=== PATIENT | female | born 1955 | race Two or more races ===

== ENCOUNTER 2021-11-17 19:26 | Inpatient (IN) | payer OTHER ==
[~2021-11-17] VITALS: Ht 149.9 cm; Wt 68.0 kg
[2021-11-17] MEDS ORDERED: BENZONATATE200 M1 (20:37)
[2021-11-17] MEDS ORDERED: LASIX20 MG (20:37)
[2021-11-17] MEDS ORDERED: TOPROL XL100 M1 PO (20:37)
[2021-11-17] MEDS ORDERED: PLAVIX75 MG (20:38)
[2021-11-17] MEDS ORDERED: GLIPIZIDE XL10 MG (20:38)
[2021-11-17] MEDS ORDERED: DALIRESP500 MCG PO (20:38)
[2021-11-17] MEDS ORDERED: CARDURA XL4 MG PO (20:38)
[2021-11-17] MEDS ORDERED: EZALLOR SPRINKL40 MG PO (20:39)
[2021-11-17] MEDS ORDERED: SYNTHROID100 MCG PO (20:39)
[2021-11-17] MEDS ORDERED: INVOKANA300 MG (20:39)
[2021-11-17] MEDS ORDERED: TRELEGY ELLIPT1 EACH IH (20:40)
== END 2022-01-29 10:01 | disposition designated cancer center or children's hospital (05) | DRG 180 ==
LOC: ER 19:26 → MEDJ 11-18 01:07
PROVIDERS: ADMIT Internal Medicine; ATTEND Internal Medicine
PROC: 4A12X4Z Monitoring of Cardiac Electrical Activity, External Approach (ICD-10-PCS; 2021-11-18)
PROC: 3E0F7GC Introduction of Other Therapeutic Substance into Respiratory Tract, Via Natural or Artificial Opening (ICD-10-PCS; 2021-11-18)
PROC: B24BYZZ Ultrasonography of Heart with Aorta using Other Contrast (ICD-10-PCS; 2021-11-18)
PROC: 0W9930Z Drainage of Right Pleural Cavity with Drainage Device, Percutaneous Approach (ICD-10-PCS; principal; 2021-11-26)
PROC: BW24ZZZ Computerized Tomography (CT Scan) of Chest and Abdomen (ICD-10-PCS; 2021-12-03)
PROC: 0W9930Z Drainage of Right Pleural Cavity with Drainage Device, Percutaneous Approach (ICD-10-PCS; 2021-12-11)
PROC: BW2410Z Computerized Tomography (CT Scan) of Chest and Abdomen using Low Osmolar Contrast, Unenhanced and Enhanced (ICD-10-PCS; 2021-12-17)
PROC: BW2110Z Computerized Tomography (CT Scan) of Abdomen and Pelvis using Low Osmolar Contrast, Unenhanced and Enhanced (ICD-10-PCS; 2021-12-20)
PROC: BG44ZZZ Ultrasonography of Thyroid Gland (ICD-10-PCS; 2021-12-20)
PROC: 0BBG3ZX Excision of Left Upper Lung Lobe, Percutaneous Approach, Diagnostic (ICD-10-PCS; 2021-12-24)
PROC: 0GBG3ZX Excision of Left Thyroid Gland Lobe, Percutaneous Approach, Diagnostic (ICD-10-PCS; 2021-12-24)
PROC: 0GBH3ZX Excision of Right Thyroid Gland Lobe, Percutaneous Approach, Diagnostic (ICD-10-PCS; 2021-12-24)
PROC: 0BBG3ZX Excision of Left Upper Lung Lobe, Percutaneous Approach, Diagnostic (ICD-10-PCS; 2021-12-24)
PROC: BW2410Z Computerized Tomography (CT Scan) of Chest and Abdomen using Low Osmolar Contrast, Unenhanced and Enhanced (ICD-10-PCS; 2022-01-01)
PROC: BW2F10Z Computerized Tomography (CT Scan) of Neck using Low Osmolar Contrast, Unenhanced and Enhanced (ICD-10-PCS; 2022-01-01)
PROC: B24BYZZ Ultrasonography of Heart with Aorta using Other Contrast (ICD-10-PCS; 2022-01-16)
PROC: BW2410Z Computerized Tomography (CT Scan) of Chest and Abdomen using Low Osmolar Contrast, Unenhanced and Enhanced (ICD-10-PCS; 2022-01-16)
DX: C78.01 Secondary malignant neoplasm of right lung (principal); J91.0 Malignant pleural effusion; J18.1 Lobar pneumonia, unspecified organism; J86.9 Pyothorax without fistula; I50.30 Unspecified diastolic (congestive) heart failure; N17.9 Acute kidney failure, unspecified; C73 Malignant neoplasm of thyroid gland; D63.1 Anemia in chronic kidney disease; I13.10 Hypertensive heart and chronic kidney disease without heart failure, with stage 1 through stage 4 chronic kidney disease, or unspecified chronic kidney disease; N18.9 Chronic kidney disease, unspecified; E11.65 Type 2 diabetes mellitus with hyperglycemia; E78.00 Pure hypercholesterolemia, unspecified; E03.9 Hypothyroidism, unspecified; E11.29 Type 2 diabetes mellitus with other diabetic kidney complication
CPT/HCPCS: 71275